=== PATIENT | female | born 1970 | race Caucasian/White ===

== ENCOUNTER → 2016-12-09 16:25 | Outpatient (CLI) | payer BC | END | disposition home or self-care (01) | LOC: D.MRI 12-08 16:30 | DX: H53.10 Unspecified subjective visual disturbances (principal) ==

== ENCOUNTER → 2017-05-23 19:56 | Outpatient (CLI) | payer BC | END | disposition home or self-care (01) | LOC: D.MAMMO 03-01 15:30 | DX: Z12.31 Encounter for screening mammogram for malignant neoplasm of breast (principal) ==

== ENCOUNTER 2018-03-31 01:05 | Emergency (ER) | payer MEDICAID ==
[~2018-03-31] VITALS: Ht 157.5 cm; Wt 69.5 kg
[2018-03-31 01:09] VITALS: Ht 157.5 cm; Wt 69.5 kg
[2018-03-31] MEDS ORDERED: B-12 DOTS500 MCG (01:10)
[2018-03-31] MEDS ORDERED: ALBUTEROL SULF8.5 GM INH (01:10)
[2018-03-31] MEDS ORDERED: LYRICA50 MG PO (01:10)
[2018-03-31 03:09] LABS: BASOPHILS 0.5 % (0-2); EOSINOPHILS 3.8 % (0-7); HEMATOCRIT 42.5 % (36.0-48.0); HEMOGLOBIN 14.3 g/dL (12-16); IMMATURE GRANULOCYTES 0.3 % (0-5); LYMPHOCYTES 21.9 % (15-50); MCH 29.1 pg (26.0-34.0); MCHC 33.6 g/dL (31.0-37.0); MCV 86.6 fL (80.0-100.0); MEAN PLATELET VOLUME 11.3 fL (7.4-10.4); MONOCYTES 8.8 % (2-11); NEUTROPHILS 64.7 % (40-80); PLATELET COUNT 271 10x3/uL (130-400); RBC 4.91 10x6/uL (4.00-5.40); WBC 11.9 10x3/uL (4.8-10.8)
[2018-03-31] MEDS ORDERED: BUTALB-APAP-CA1 EACH PO (03:22)
[2018-03-31 03:32] LABS: ALBUMIN 3.6 g/dL (3.4-5.0); ALKALINE PHOSPHATASE 88 U/L (46-116); ALT (SGPT) 27 U/L (10-68); BILIRUBIN - TOTAL 0.49 mg/dL (0.2-1.3); CALC OSMOLALITY 285 mosm/kg (275-300); CALCIUM 8.5 mg/dL (8.5-10.1); CHLORIDE - SERUM 107 mmol/L (98-107); CREATININE - SERUM 0.7 mg/dL (0.6-1.3); GLUCOSE 115 mg/dL (74-106); POTASSIUM - SERUM 4.5 mmol/L (3.5-5.1); PROTEIN - SERUM 7.6 g/dL (6.4-8.2); SODIUM 143 mmol/L (136-145); UREA NITROGEN 12 mg/dL (7-18); eGFR NON AFRICAN AMERICAN > 90 mL/min (90-120)
[2018-03-31 03:51] VITALS: BP 132/97
== END 2018-03-31 03:51 | disposition home or self-care (01) ==
LOC: D.ER 01:05
PROVIDERS: Family Medicine
DX: G43.909 Migraine, unspecified, not intractable, without status migrainosus (principal)

== ENCOUNTER 2018-06-04 15:12 | Emergency (ER) | payer MEDICAID ==
[~2018-06-04] VITALS: Ht 157.5 cm; Wt 61.4 kg
[~2018-06-04 15:12] MED LIST: ALBUTEROL SULF8.5 GM INH; B-12 DOTS500 MCG; BUTALB-APAP-CA1 EACH PO; LYRICA50 MG PO
[2018-06-04 15:30] VITALS: BP 165/113; Ht 157.5 cm; Wt 61.4 kg
== END 2018-06-04 17:35 | disposition home or self-care (01) ==
LOC: D.ER 15:12
DX: G43.909 Migraine, unspecified, not intractable, without status migrainosus (principal)

== ENCOUNTER 2018-07-07 12:47 | Emergency (ER) | payer SELFPAY ==
[~2018-07-07] VITALS: Ht 157.5 cm; Wt 54.5 kg
[2018-07-07 12:53] VITALS: BP 133/89; Ht 157.5 cm; Wt 54.5 kg
== END 2018-07-07 13:35 | disposition home or self-care (01) ==
LOC: D.ER 12:47
DX: F41.9 Anxiety disorder, unspecified (principal)

== ENCOUNTER 2018-12-06 01:04 | Emergency (ER) | payer MEDICAID ==
[~2018-12-06] VITALS: Ht 157.5 cm; Wt 54.5 kg
[2018-12-06 01:09] VITALS: Ht 157.5 cm; Wt 54.5 kg
[2018-12-06 01:34] LABS: APPEARANCE CLEAR (CLEAR); COLOR YELLOW (YELLOW)
[2018-12-06 01:35] LABS: BILIRUBIN NEGATIVE (NEGATIVE); GLUCOSE NEGATIVE (NEGATIVE); KETONE NEGATIVE (NEGATIVE); NITRITE NEGATIVE (NEGATIVE); PROTEIN NEGATIVE (NEGATIVE); SPECIFIC GRAVITY 1.015 (1.005-1.020); UDS - AMPHET NEGATIVE QUAL (NEGATIVE); UDS - BARB NEGATIVE QUAL (NEGATIVE); UDS - BENZO NEGATIVE QUAL (NEGATIVE); UDS - COCAINE NEGATIVE QUAL (NEGATIVE); UDS - OPIATE NEGATIVE QUAL (NEGATIVE); UDS - PCP NEGATIVE QUAL (NEGATIVE); UDS - THC POSITIVE QUAL (NEGATIVE); UROBILINOGEN NORMAL (NORMAL)
[2018-12-06 01:36] LABS: BACTERIA FEW /hpf (NEGATIVE); EPITHELIAL CELLS 0-5 /hpf (0-5); RED CELLS - URINE 0-5 /hpf (0-5); WHITE CELLS - URINE 0-5 /hpf (NEGATIVE)
[2018-12-06 01:37] LABS: BASOPHILS 0.5 % (0-2); EOSINOPHILS 0.9 % (0-7); HEMATOCRIT 40.8 % (36.0-48.0); IMMATURE GRANULOCYTES 0.2 % (0-5); LYMPHOCYTES 18.4 % (15-50); MCH 29.7 pg (26.0-34.0); MCHC 34.3 g/dL (31.0-37.0); MCV 86.4 fL (80.0-100.0); MEAN PLATELET VOLUME 11.3 fL (7.4-10.4); MONOCYTES 7.6 % (2-11); NEUTROPHILS 72.4 % (40-80); PLATELET COUNT 323 10x3/uL (130-400); RBC 4.72 10x6/uL (4.00-5.40); RDW 12.7 % (11.5-14.5); WBC 12.8 10x3/uL (4.8-10.8)
[2018-12-06 01:56] LABS: HCG SERUM NEGATIVE (NEGATIVE)
[2018-12-06 02:01] LABS: ALBUMIN 3.7 g/dL (3.4-5.0); ALKALINE PHOSPHATASE 83 U/L (46-116); ALT (SGPT) 26 U/L (10-68); BILIRUBIN - TOTAL 0.35 mg/dL (0.2-1.3); CALC OSMOLALITY 278 mosm/kg (275-300); CALCIUM 8.5 mg/dL (8.5-10.1); CARBON DIOXIDE 32.3 mmol/L (21.0-32.0); CHLORIDE - SERUM 104 mmol/L (98-107); CREATININE - SERUM 0.5 mg/dL (0.6-1.3); GLUCOSE 109 mg/dL (74-106); POTASSIUM - SERUM 3.1 mmol/L (3.5-5.1); SODIUM 141 mmol/L (136-145); UREA NITROGEN 4 mg/dL (7-18); eGFR NON AFRICAN AMERICAN > 90 mL/min (90-120)
[2018-12-06 06:38] VITALS: BP 130/89
== END 2018-12-06 06:39 | disposition home or self-care (01) ==
LOC: D.ER 01:04
PROVIDERS: Family Medicine
DX: G47.00 Insomnia, unspecified (principal); R44.1 Visual hallucinations; R51 Headache; G43.909 Migraine, unspecified, not intractable, without status migrainosus